=== PATIENT | male | born 1960 | race Caucasian/White ===

== ENCOUNTER 2021-01-24 00:22 | Emergency (ER) | payer SELFPAY ==
[~2021-01-24] VITALS: Ht 172.7 cm; Wt 64.9 kg
[2021-01-24 00:25] VITALS: BP 143/88
[2021-01-24] MEDS ORDERED: PERM60CR4 TP (00:56)
[2021-01-24] MEDS ORDERED: TRIA80OI TP (00:56)
== END 2021-01-24 01:02 | disposition home or self-care (01) ==
LOC: ER 00:26
DX: S60.562A Insect bite (nonvenomous) of left hand, initial encounter (principal); S60.561A Insect bite (nonvenomous) of right hand, initial encounter; W57.XXXA Bitten or stung by nonvenomous insect and other nonvenomous arthropods, initial encounter; Y93.89 Activity, other specified; Y92.89 Other specified places as the place of occurrence of the external cause; Y99.8 Other external cause status

== ENCOUNTER 2022-09-28 15:19 | Emergency (ER) | payer MEDICAID ==
[~2022-09-28] VITALS: Ht 172.7 cm; Wt 72.6 kg
[~2022-09-28 15:19] MED LIST: PERM60CR4 TP; TRIA80OI TP
[2022-09-28] MEDS ORDERED: TAMSULOSIN 0.4 MG CAP.SR.24H ONE (15:57)
[2022-09-28] MEDS ORDERED: TAMSULOSIN 0.4 MG CAP.SR.24H PO ONE (16:00)
--- NOTE | 2022-09-28 16:36 | NUR ---
URINE COLLECTED AND SENT TO LAB
[2022-09-28 17:24] LABS: BILIRUBIN,URINE NEGATIVE (NEGATIVE); COLOR,URINE ORANGE (YELLOW); LEUKOCYTE ESTERASE ,URINE NEGATIVE (NEGATIVE); NITRITE, URINE POSITIVE (NEGATIVE); PH,URINE 6.5 (5.0-8.0); PROTEIN,URINE TRACE mg/dl (NEGATIVE); UGLUCOSE TRACE mg/dL (NEGATIVE)
[2022-09-28] MEDS ORDERED: TAMS-12 PO (17:36)
--- NOTE | 2022-09-28 18:00 | NUR ---
Drainage bad switched to Leg bag. Urine draining well. Patient discharged to home in stable condition. Written and verbal after care instructions given. Patient verbalizes understanding of instruction.
[2022-09-28 18:03] LABS: WBC,URINE 0-2 /HPF (0-3)
[2022-09-28 18:04] LABS: BACTERIA,URINE 1+ /HPF (None Seen); SQUAMOUS EPITHELIAL CELL,UR 0-2 /HPF (None Seen)
[2022-09-28 18:14] VITALS: BP 134/57
== END 2022-09-28 18:15 | disposition home or self-care (01) ==
LOC: ER 15:25
DX: R33.9 Retention of urine, unspecified (principal); Z60.2 Problems related to living alone; Z79.899 Other long term (current) drug therapy
CPT/HCPCS: 81001; 87086-TC

== ENCOUNTER 2022-10-05 23:15 | Emergency (ER) | payer MEDICAID ==
[~2022-10-05] VITALS: Ht 172.7 cm; Wt 70.3 kg
[~2022-10-05 23:15] MED LIST changes: +TAMS-12 PO
[2022-10-06 00:02] VITALS: BP 123/78
--- NOTE | 2022-10-06 00:04 | NUR ---
PT CAME IN TO HAVE HIS BEY CATH REMOVED. IT WAS PLACED ON 09/28/22 D/T URINE RETENTION. PER PT IT IS BOTHERING HIM AND DOES NOT WANT THE BEY CATH ANYMORE. PT HAVE A UROLOGY APPT ON 11/07/22. EXPLAINED TO PT THE RISK AND BENEFITS MULTIPLE TIMES AND MADE AWARE THAT THE POSSIBILITY OF HAVE A RETENTION IS VERY HIGH. PT ACKNOELEDGE AND UNDERSTTOD WHAT WAS EXAPLAINED TO HIM.
--- NOTE | 2022-10-06 00:12 | NUR ---
Patient discharged to home in stable condition. Written and verbal after care instructions given. Patient verbalizes understanding of instruction. pt ambulatory with a steady gait
== END 2022-10-06 00:13 | disposition home or self-care (01) ==
LOC: ER 23:16
DX: Z46.6 Encounter for fitting and adjustment of urinary device (principal); Z60.2 Problems related to living alone; Z79.899 Other long term (current) drug therapy

== ENCOUNTER 2022-10-15 13:55 | Emergency (ER) | payer MEDICAID ==
[~2022-10-15] VITALS: Ht 167.6 cm; Wt 68.0 kg
[2022-10-15 14:13] VITALS: BP 113/73
[2022-10-15] MEDS ORDERED: TAMS-12 PO ×2 (14:34→14:40)
== END 2022-10-15 15:48 | disposition home or self-care (01) ==
LOC: ER 13:55
DX: R33.9 Retention of urine, unspecified (principal); Z76.0 Encounter for issue of repeat prescription